=== PATIENT | male | born 2000 | race Caucasian/White ===

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

== ENCOUNTER 2022-09-24 15:38 | Emergency (ER) | payer OTHER ==
[~2022-09-24] VITALS: Ht 172.7 cm; Wt 93.4 kg
[2022-09-24 16:12] VITALS: BP 116/77
[2022-09-24 19:27] VITALS: BP 116/77
--- NOTE | 2022-09-24 19:27 | NUR ---
Patient discharged with v/s stable. Written and verbal after care instructions given and explained. Patient verbalized understanding. Ambulatory with steady gait. All questions addressed prior to discharge. Advised to follow up with PMD.
== END 2022-09-24 19:27 | disposition home or self-care (01) ==
LOC: MED 15:38
DX: Z00.01 Encounter for general adult medical examination with abnormal findings (principal); M25.511 Pain in right shoulder; R56.9 Unspecified convulsions
CPT/HCPCS: 99281